=== PATIENT | male | born 1990 | race Caucasian/White ===

== ENCOUNTER 2017-05-26 11:47 | Emergency (ER) | payer BC ==
[~2017-05-26] VITALS: Ht 172.7 cm; Wt 108.9 kg
[2017-05-26 11:54] VITALS: BP 153/84
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
--- NOTE | 2017-05-26 12:02 | NUR ---
Patient ambulated to bed 08.
--- NOTE | 2017-05-26 12:20 | NUR ---
Dr. Weldon evaluating patient at bedside.
--- NOTE | 2017-05-26 12:56 | NUR ---
LAB at bedside.
[2017-05-26] MEDS: ONDANSETRON 4 MG/2 ML VIAL IVP ONE (13:00)
--- NOTE | 2017-05-26 13:00 | NUR ---
Patient taken to CT via wheelchair per tech.
[2017-05-26] MEDS: KETOROLAC 30 MG/ML VIAL IVP ONE (13:01)
[2017-05-26 13:07] LABS: BASOPHILS # (AUTO) 0.1 K/uL (0.00-0.22); BASOPHILS % (AUTO) 0.7 % (0.0-2.0); EOSINOPHILS # (AUTO) 0.2 K/uL (0-0.4); EOSINOPHILS % (AUTO) 1.6 % (0.0-4.0); HEMOGLOBIN 15.1 g/dL (12.0-18.0); LYMPHOCYTES # (AUTO) 0.5 K/uL (2.0-11.5); MEAN CORPUSCULAR HEMOGLOBIN 30 pg (27-31); MEAN CORPUSCULAR HGB CONC 33 g/dL (33-37); MEAN CORPUSCULAR VOLUME 91 fL (80-94); MONOCYTES # (AUTO) 0.7 K/uL (0.8-1.0); MONOCYTES % (AUTO) 5.7 % (1.7-9.3); NEUTROPHILS # (AUTO) 11.2 K/uL (1.8-7.7); PLATELET COUNT (AUTO) 247 K/uL (140-450); RED BLOOD CELL COUNT(AUTO) 5.08 MIL/uL (4.20-6.10); RED CELL DISTRIBUTION WIDTH 11.9 % (11.6-13.7); WHITE BLOOD COUNT (AUTO) 12.7 K/uL (4.8-10.8)
--- NOTE | 2017-05-26 13:07 | NUR ---
Patient back from CT via wheelchair per tech.
[2017-05-26] MEDS: NACL 0.9% 1,000 ML IV SCH (13:12)
[2017-05-26 13:21] LABS: ANION GAP 12.8 (8-16); CALCIUM 8.3 mg/dL (8.5-10.1); CARBON DIOXIDE 28.1 mmol/L (21-32); POTASSIUM 3.9 mmol/L (3.5-5.1)
[2017-05-26 13:27] LABS: LACTIC ACID 0.9 mmol/L (0.4-2.0)
[2017-05-26 13:33] LABS: ALBUMIN 4.3 g/dL (3.4-5.0); TOTAL BILIRUBIN 1.9 mg/dL (0.0-1.0); TOTAL PROTEIN, SERUM 7.8 g/dL (6.4-8.2)
[2017-05-26 14:14] LABS: APPEARANCE,URINE TURBID (CLEAR); BLOOD, URINE TRACE-I (NEGATIVE); COLOR,URINE YELLOW (YELLOW); LEUKOCYTE ESTERASE ,URINE NEGATIVE (NEGATIVE); NITRITE, URINE NEGATIVE (NEGATIVE); PROTEIN,URINE 1+ (NEGATIVE); UGLUCOSE NEGATIVE (NEGATIVE); UROBILINOGEN,URINE 0.2 EU/dL (0.2 - 1)
[2017-05-26 14:20] LABS: BILIRUBIN,URINE NEGATIVE (NEGATIVE)
[2017-05-26 14:23] LABS: BACTERIA,URINE RARE /HPF (None Seen); RBC,URINE 0-3 /HPF (0-5); SQUAMOUS EPITHELIAL CELL,UR 0-3 /LPF (0-3 (FEW)); URINE AMORPHOUS URATE 4+ /HPF (None Seen); WBC,URINE 0-3 /HPF (0-5)
--- NOTE | 2017-05-26 14:29 | NUR ---
PT ASKED IF HE CAN EAT;TALKED TO ER MD;DR JIM SAID NO.EXPLAINED TO PT THAT HE CNNOT EAT AT THIS TIME;
--- NOTE | 2017-05-26 15:12 | NUR ---
Patient discharged with v/s stable. Written and verbal after care instructions given and explained. Patient alert, oriented and verbalized understanding of instructions. Ambulatory with steady gait. All questions addressed prior to discharge. ID band removed. Patient advised to follow up with PMD. Rx of NORCO AND FLOMAX given. Patient educated on indication of medication including possible reaction and side effects. Opportunity to ask questions provided and answered.
[2017-05-26 15:13] VITALS: BP 137/72
== END 2017-05-26 15:12 | disposition home or self-care (01) ==
LOC: MED 11:47
DX: N20.1 Calculus of ureter (principal); R03.0 Elevated blood-pressure reading, without diagnosis of hypertension; R19.7 Diarrhea, unspecified
CPT/HCPCS: 36415; 74176; 80053; 81001; 82150; 83605; 83690; 85025; 87040; 96361; 96374; 96375; 99285; J1885; J2405; J7030

== ENCOUNTER 2018-07-04 09:28 | Emergency (ER) | payer BC ==
[~2018-07-04] VITALS: Ht 170.2 cm; Wt 108.9 kg
--- NOTE | 2018-07-04 09:32 | NUR ---
PT AMBULATES TO BED 7
[2018-07-04 09:37] VITALS: BP 120/61
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
--- NOTE | 2018-07-04 09:50 | NUR ---
DR OLGUIN EVALUATING AT BEDSIDE
[2018-07-04] MEDS ORDERED: KETOROLAC 60 MG/2 ML VIAL IM ONE (09:55)
--- NOTE | 2018-07-04 10:07 | NUR ---
PT TAKEN TO CT IN WHEELCHAIR
[2018-07-04] MEDS ORDERED: NEOMYCIN/POLYMYXIN/BACITRACIN 0.9 GM/1 PKT TP ONE (10:10)
--- NOTE | 2018-07-04 10:18 | NUR ---
PT RETURNED TO CT
[2018-07-04 11:25] VITALS: BP 118/60
--- NOTE | 2018-07-04 11:26 | NUR ---
Patient discharged with v/s stable. Written and verbal after care instructions given and explained. Patient verbalized understanding. EXPLAINED TO PT FOLLOW UP WITH PCP OR COME BACK IN 7 DAYS TO REEVALUATE THE WOUND.Ambulatory with steady gait. All questions addressed prior to discharge. Advised to follow up with PMD.
== END 2018-07-04 11:26 | disposition home or self-care (01) ==
LOC: MED 09:28
DX: S01.81XA Laceration without foreign body of other part of head, initial encounter (principal); V29.9XXA Motorcycle rider (driver) (passenger) injured in unspecified traffic accident, initial encounter; Y93.89 Activity, other specified; Y92.89 Other specified places as the place of occurrence of the external cause; Y99.8 Other external cause status
CPT/HCPCS: 70450; 70486; 72125; 90471; 90715; 96372; 99284; J1885

== ENCOUNTER 2023-07-12 22:58 | Emergency (ER) | payer BC ==
[~2023-07-12] VITALS: Ht 170.2 cm; Wt 121.1 kg
[2023-07-12 23:19] VITALS: BP 116/67; PULSE 62; RESP 16; TEMP 97.2; O2SAT 97
[2023-07-13] MEDS ORDERED: KETOROLAC 30 MG/ML VIAL ONE (02:34)
[2023-07-13] MEDS ORDERED: IBUP-2213 PO (05:16)
== END 2023-07-13 05:40 | disposition home or self-care (01) ==
LOC: MED 22:58
DX: M71.22 Synovial cyst of popliteal space [Baker], left knee (principal)
CPT/HCPCS: 93971; 99284; J1885; Q0092

== ENCOUNTER 2024-03-02 20:55 | Emergency (ER) | payer BC ==
[~2024-03-02] VITALS: Ht 170.2 cm; Wt 121.6 kg
[~2024-03-02 20:55] MED LIST: IBUP-2213 PO
[2024-03-02 21:00] VITALS: BP 140/64; PULSE 90; RESP 18; TEMP 97.8; O2SAT 97
[2024-03-02 22:34] LABS: FLU A ANTIGEN negative (NEGATIVE); FLU B ANTIGEN NEGATIVE (NEGATIVE)
[2024-03-02 22:48] VITALS: O2SAT 98
[2024-03-02 23:47] LABS: BASOPHILS % (AUTO) 0.4 % (0.0-2.0); EOSINOPHILS % (AUTO) 0.4 % (0.0-4.0); HEMATOCRIT 44.5 % (36-52); HEMOGLOBIN 15.4 g/dL (12.0-18.0); LYMPHOCYTES # (AUTO) 1.1 K/uL (2.0-11.5); LYMPHOCYTES % (AUTO) 11.6 % (20.5-51.1); MEAN CORPUSCULAR HEMOGLOBIN 32 pg (27-31); MEAN CORPUSCULAR HGB CONC 35 g/dL (33-37); MEAN CORPUSCULAR VOLUME 91.9 fL (80-94); MONOCYTES % (AUTO) 10.7 % (1.7-9.3); NEUTROPHILS # (AUTO) 7.4 K/uL (1.8-7.7); NEUTROPHILS % (AUTO) 76.9 % (42.2-75.2); PLATELET COUNT (AUTO) 258 K/uL (140-450); RED BLOOD CELL COUNT(AUTO) 4.84 MIL/uL (4.20-6.10); RED CELL DISTRIBUTION WIDTH 13.6 % (11.6-13.7); WHITE BLOOD COUNT (AUTO) 9.7 K/uL (4.8-10.8)
[2024-03-03 00:09] LABS: ALBUMIN 3.8 g/dL (3.4-5.0); CALCIUM 8.7 mg/dL (8.5-10.1); CARBON DIOXIDE 27.7 mmol/L (21-32); POTASSIUM 3.7 mmol/L (3.5-5.1); TOTAL BILIRUBIN 1.1 mg/dL (0.0-1.0); TOTAL PROTEIN, SERUM 7.4 g/dL (6.4-8.2)
[2024-03-03] MEDS ORDERED: ACET-10509 PO (00:59)
[2024-03-03 01:06] LABS: CKMB RELATIVE INDEX 0.6 (0.0-2.5); CREATINE KINASE MB 2.8 ng/mL (0-3.6)
[2024-03-03 01:19] VITALS: BP 110/53; PULSE 82; RESP 14; TEMP 97.8; O2SAT 98
== END 2024-03-03 01:19 | disposition home or self-care (01) ==
LOC: MED 20:55
DX: M79.10 Myalgia, unspecified site (principal); Z20.822 Contact with and (suspected) exposure to COVID-19; R68.83 Chills (without fever); Z79.899 Other long term (current) drug therapy
CPT/HCPCS: 80053; 82550; 82553; 85025; 99283